=== PATIENT | female | born 1980 | race American Indian/Alaskan Native ===

== ENCOUNTER 2016-05-03 05:42 | Outpatient (CLI) | payer MEDICAID ==
[2016-05-03 06:46] LABS: Bilirubin,Urine NEG (Negative); Blood,Urine NEG (Negative); Ketones,Urine TR mg/dL (Negative); Leukocyte Esterase,Urine NEG (Negative); Mucus,Urine FEW /HPF; Nitrite,Urine NEG (Negative); Protein,Urine <15 mg/dL mg/dL (Negative); Urobilinogen,Urine < 2.0 mg/dL (<2.0)
[2016-05-03] MEDS ORDERED: LACTATED RINGERS 500 ML IV ONE (08:35)
[2016-05-03] MEDS ORDERED: ZOFRAN IV ONE (08:47)
[2016-05-03] MEDS ORDERED: LOMOTIL PO PRN (08:48)
[2016-05-03 11:07] VITALS: BP 127/73
== END 2016-05-03 11:27 | disposition home or self-care (01) ==
LOC: TRG 05:42
PROVIDERS: ATTEND Obstetrics & Gynecology
DX: O26.893 Other specified pregnancy related conditions, third trimester (principal); Z3A.28 28 weeks gestation of pregnancy
CPT/HCPCS: 59025; 81001; 96360; 96374; J2405; J7120

== ENCOUNTER 2016-05-15 12:07 | Outpatient (CLI) | payer MEDICAID ==
[2016-05-15] MEDS ORDERED: LACTATED RINGERS 500 ML IV ONE (13:00)
[2016-05-15 13:20] VITALS: BP 133/79
[2016-05-15 13:35] LABS: Bilirubin,Urine NEG (Negative); Blood,Urine NEG (Negative); Ketones,Urine NEG (Negative); Leukocyte Esterase,Urine NEG (Negative); Mucus,Urine FEW /HPF; Nitrite,Urine NEG (Negative); Protein,Urine <15 mg/dL mg/dL (Negative); Urobilinogen,Urine < 2.0 mg/dL (<2.0)
== END 2016-05-15 16:18 | disposition home or self-care (01) ==
LOC: TRG 12:07
PROVIDERS: ATTEND Obstetrics & Gynecology
DX: O47.03 False labor before 37 completed weeks of gestation, third trimester (principal); Z3A.29 29 weeks gestation of pregnancy
CPT/HCPCS: 59025; 81001; J7120

== ENCOUNTER 2016-06-27 10:07 | Outpatient (CLI) | payer MEDICAID ==
[2016-06-27] MEDS ORDERED: LACTATED RINGERS 500 ML IV ONE (12:00)
[2016-06-27] MEDS ORDERED: ZOFRAN IV ONE (12:00)
[2016-06-27 12:06] LABS: Hematocrit 36.5 % (30.3-42.9); Hemoglobin 12.2 gm/dl (10.1-14.3); Mean Corpuscular HGB Conc 34 % (30-34); Mean Corpuscular Hemoglobin 29 pg (28-32); Mean Corpuscular Volume 85 fl (79-97); Red Blood Count 4.29 M/mm3 (3.65-5.03); Red Cell Distribution Width 12.7 % (13.2-15.2); White Blood Count 6.3 K/mm3 (4.5-11.0)
[2016-06-27 12:10] LABS: Bacteria,Urine 1+ /HPF (Negative); Bilirubin,Urine NEG (Negative); Blood,Urine NEG (Negative); Ketones,Urine TR mg/dL (Negative); Leukocyte Esterase,Urine NEG (Negative); Mucus,Urine FEW /HPF; Nitrite,Urine NEG (Negative); Protein,Urine <15 mg/dL mg/dL (Negative)
[2016-06-27 12:19] LABS: Platelet Count 110 K/mm3 (140-440)
[2016-06-27 12:22] LABS: Alanine Aminotransferase 21 units/L (7-56); Lactate Dehydrogenase 552 units/L (91-180); Uric Acid 5.3 mg/dL (3.5-7.6)
[2016-06-27 14:29] VITALS: BP 129/76
== END 2016-06-27 15:13 | disposition home or self-care (01) ==
LOC: TRG 10:07
PROVIDERS: ATTEND Obstetrics & Gynecology
DX: O47.03 False labor before 37 completed weeks of gestation, third trimester (principal); Z3A.35 35 weeks gestation of pregnancy
CPT/HCPCS: 36415; 59025; 81001; 82565; 83615; 84450; 84460; 84550; 85027; 96360; J2405; J7120

== ENCOUNTER 2016-07-06 11:56 | Outpatient (CLI) | payer MEDICAID ==
[2016-07-06] MEDS ORDERED: ZOFRAN ONE (12:55)
[2016-07-06] MEDS ORDERED: LACTATED RINGERS 1,000 ML ONE (12:55)
[2016-07-06] MEDS ORDERED: LACTATED RINGERS 500 ML IV ONE (12:56)
[2016-07-06] MEDS ORDERED: ZOFRAN IV ONE (12:57)
[2016-07-06 13:44] LABS: Bilirubin,Urine NEG (Negative); Blood,Urine NEG (Negative); Ketones,Urine NEG (Negative); Leukocyte Esterase,Urine NEG (Negative); Mucus,Urine FEW /HPF; Nitrite,Urine NEG (Negative); Protein,Urine <15 mg/dL mg/dL (Negative); RBC,Urine < 1.0 /HPF (0.0-6.0); Urobilinogen,Urine < 2.0 mg/dL (<2.0); WBC,Urine < 1.0 /HPF (0.0-6.0)
[2016-07-06 14:32] VITALS: BP 108/49
== END 2016-07-06 14:40 | disposition home or self-care (01) ==
LOC: TRG 11:56
PROVIDERS: ATTEND Obstetrics & Gynecology
DX: O47.1 False labor at or after 37 completed weeks of gestation (principal); Z3A.37 37 weeks gestation of pregnancy
CPT/HCPCS: 59025; 81001; 96360; 96361; 96372; J2405; J7120

== ENCOUNTER 2017-05-01 11:10 | Emergency (ER) | payer SELFPAY ==
[2017-05-01 11:27] VITALS: BP 155/107
[2017-05-01] MEDS ORDERED: MOTRIN PO ONE (11:54)
[2017-05-01] MEDS ORDERED: NORCO 7.5/325 PO ONE (11:54)
--- NOTE | 2017-05-01 11:58 | Emergency Department Report ---
ED Back Pain/Injury HPI - General Chief Complaint: Back Pain/Injury Stated Complaint: 2 RUPTURE DISC IN BACK Time Seen by Provider: 05/01/17 11:50 Source: patient Limitations: No Limitations - History of Present Illness Initial Comments: Patient is a 37-year-old female presenting with low back pain. Patient states she coughed yesterday and felt a ripping sensation in her lower back. Patient has a history of 2 ruptured disc with a history of needing physical therapy and the several therapies are back. Patient states that the pain is 8 out of 10 and worse with movement. Patient denies any urinary or bowel abnormalities. Patient states there is no radiation of the pain down to the legs. Patient also denies any fever or urinary symptoms such as dysuria nausea vomiting or abdominal pain. MD Complaint: back pain - Related Data Previous Rx's Medication Instructions Recorded Last Taken Type Levofloxacin [levofloxacin OPTH] 1 - 2 drop OP Q2HWA #80 drops 11/21/15 Unknown Rx Acetaminophen [Acetaminophen TAB] 500 mg PO Q6HR #30 tablet 01/09/16 Unknown Rx HYDROcodone/ACETAMINOPHEN [[place] 1 each PO Q6HR PRN #12 tablet 05/01/17 Unknown Rx 5-325 Tablet] Ibuprofen [Motrin] 800 mg PO Q8HR PRN #20 tablet 05/01/17 Unknown Rx methOCARBAMOL [Robaxin TAB] 500 mg PO Q6H PRN #15 tablet 05/01/17 Unknown Rx Allergies Allergy/AdvReac Type Severity Reaction Status Date / Time Penicillins Allergy Swelling Verified 10/29/15 16:43 ED Review of Systems ROS: Stated complaint: 2 RUPTURE DISC IN BACK Other details as noted in HPI Comment: All other systems reviewed and negative ED Past Medical Hx - Past Medical History "cyst on ovary", ruptured disc Family history: no significant family history ED Back Pain Physical Exam - Exam General: Vital signs noted. No distress. Alert and acting appropriately. Heart lung exams are within normal limits. Abdomen is soft nontender. Skin exam is normal no rash present. Back/Abdomen: Yes Perilumbar Tenderness, No Abdominal Tenderness, No Perithoracic Tenderness, No Sacroiliac Tenderness, No Flank Tenderness, No Straight Leg Raise Pain Neuro: Yes Normal Sensation, Yes Normal DTR's, Yes Normal Gait, No Motor Weakness ED Course Vital Signs 05/01/17 11:23 Temperature 98.7 F Pulse Rate 79 Respiratory 18 Rate Blood Pressure 155/107 O2 Sat by Pulse 98 Oximetry Critical care attestation.: If time is entered above; I have spent that time in minutes in the direct care of this critically ill patient, excluding procedure time. ED Disposition Clinical Impression: Lumbar spine strain Qualifiers: Encounter type: initial encounter Qualified Code(s): S39.012A - Strain of muscle, fascia and tendon of lower back, initial encounter Disposition: TO HOME OR SELFCARE Is pt being admited?: No Does the pt Need Aspirin: No Condition: Stable Instructions: Low Back Strain (ED) Prescriptions: HYDROcodone/ACETAMINOPHEN [[place] 5-325 Tablet] 1 each PO Q6HR PRN #12 tablet PRN Reason: Pain Ibuprofen [Motrin] 800 mg PO Q8HR PRN #20 tablet PRN Reason: Pain methOCARBAMOL [Robaxin TAB] 500 mg PO Q6H PRN #15 tablet PRN Reason: Pain Referrals: OSIRIS SON MD [Staff Physician] - 3-5 Days
== END 2017-05-01 12:06 | disposition home or self-care (01) ==
LOC: ED 11:10
DX: S39.012A Strain of muscle, fascia and tendon of lower back, initial encounter (principal); Z88.0 Allergy status to penicillin; X58.XXXA Exposure to other specified factors, initial encounter; Y93.89 Activity, other specified; Y99.8 Other external cause status; Y92.89 Other specified places as the place of occurrence of the external cause
CPT/HCPCS: 99282

== ENCOUNTER 2018-05-22 09:59 | Emergency (ER) | payer MEDICAID, OTHER ==
[2018-05-22] MEDS ORDERED: ASPIRIN PO ONE (10:18)
[2018-05-22 10:33] LABS: Basophils # (Auto) 0.1 K/mm3 (0.0-0.1); Basophils % (Auto) 1.1 % (0.0-1.8); Eosinophils % (Auto) 0.4 % (0.0-4.3); Hematocrit 53.1 % (30.3-42.9); Hemoglobin 17.7 gm/dl (10.1-14.3); Lymphocytes # (Auto) 1.8 K/mm3 (1.2-5.4); Lymphocytes % (Auto) 23.2 % (13.4-35.0); Mean Corpuscular HGB Conc 33 % (30-34); Mean Corpuscular Volume 87 fl (79-97); Monocytes # (Auto) 0.7 K/mm3 (0.0-0.8); Monocytes % (Auto) 9.3 % (0.0-7.3); Platelet Count 135 K/mm3 (140-440); Red Blood Count 6.12 M/mm3 (3.65-5.03); Red Cell Distribution Width 14.6 % (13.2-15.2)
--- NOTE | 2018-05-22 10:55 | XRay Report ---
ROUTINE CHEST, TWO VIEWS: HISTORY: chest pain. The trachea, heart, mediastinal contour, lung bueno and bony thorax are unremarkable. IMPRESSION: Unremarkable chest x-ray.
[2018-05-22 11:05] LABS: BUN/Creatinine Ratio 8; Blood Urea Nitrogen 6 mg/dL (7-17); Calcium 9.1 mg/dL (8.4-10.2); Hemolysis Index 43
--- NOTE | 2018-05-22 12:06 | Emergency Department Report ---
ED Chest Pain HPI - General Chief Complaint: Chest Pain Stated Complaint: CHEST PAIN/LFT ARM PAIN Time Seen by Provider: 05/22/18 11:38 Source: patient Mode of arrival: Ambulatory Limitations: No Limitations - History of Present Illness Initial Comments: Patient is a 38-year-old Female who is presenting with chest discomfort which started this morning. Patient states that she has some tightness in the chest last to 3 hours and also states she has some tingling in her left arm. Patient states that this is not exertional and constant. She had one episode of nausea and vomiting. Patient states that prior to arrival she did have some shortness of breath and a mild cough patient denies any history of chest pain. Patient denies fevers chills sore throat and body aches at this time. Severity scale (0 -10): 7 - Related Data Previous Rx's Medication Instructions Recorded Last Taken Type levoFLOXacin [levofloxacin OPTH] 1 - 2 drop OP Q2HWA #80 drops 11/21/15 Unknown Rx Acetaminophen [Acetaminophen TAB] 500 mg PO Q6HR #30 tablet 01/09/16 Unknown Rx HYDROcodone/ACETAMINOPHEN [[place] 1 each PO Q6HR PRN #12 tablet 05/01/17 Unknown Rx 5-325 Tablet] Ibuprofen [Motrin] 800 mg PO Q8HR PRN #20 tablet 05/01/17 Unknown Rx methOCARBAMOL [Robaxin TAB] 500 mg PO Q6H PRN #15 tablet 05/01/17 Unknown Rx Allergies Allergy/AdvReac Type Severity Reaction Status Date / Time Penicillins Allergy Swelling Verified 10/29/15 16:43 Heart Score - HEART Score History: Moderately suspicious EKG: Normal Age: < 45 Risk factors: No known risk factors Troponin: < normal limit HEART Score: 1 ED Review of Systems ROS: Stated complaint: CHEST PAIN/LFT ARM PAIN Other details as noted in HPI Comment: All other systems reviewed and negative ED Past Medical Hx - Past Medical History Hx Hypertension: Yes (previous ) Hx Congestive Heart Failure: No Hx Diabetes: Yes (gestational in previous preg.) Hx Deep Vein Thrombosis: No Hx Renal Disease: No Hx Sickle Cell Disease: No Hx Seizures: No Hx Asthma: No Hx COPD: No Hx HIV: No Additional medical history: "cyst on ovary", ruptured disc - Surgical History Past Surgical History?: No Additional Surgical History: D & C. C section - Social History Smoking Status: Current Every Day Smoker Substance Use Type: None, Alcohol, Marijuana - Medications Home Medications: Home Medications Medication Instructions Recorded Confirmed Last Taken Type levoFLOXacin [levofloxacin OPTH] 1 - 2 drop OP Q2HWA #80 drops 11/21/15 Unknown Rx Acetaminophen [Acetaminophen TAB] 500 mg PO Q6HR #30 tablet 01/09/16 Unknown Rx HYDROcodone/ACETAMINOPHEN [[place] 1 each PO Q6HR PRN #12 tablet 05/01/17 Unknown Rx 5-325 Tablet] Ibuprofen [Motrin] 800 mg PO Q8HR PRN #20 tablet 05/01/17 Unknown Rx methOCARBAMOL [Robaxin TAB] 500 mg PO Q6H PRN #15 tablet 05/01/17 Unknown Rx ED Physical Exam - General Limitations: No Limitations General appearance: alert, in no apparent distress - Head Head exam: Present: atraumatic, normocephalic - Eye Eye exam: Present: normal appearance - ENT ENT exam: Present: mucous membranes moist - Neck Neck exam: Present: normal inspection - Respiratory Respiratory exam: Present: normal lung sounds bilaterally. Absent: respiratory distress, wheezes, rales, rhonchi - Cardiovascular Cardiovascular Exam: Present: regular rate, normal rhythm. Absent: systolic murmur, diastolic murmur, rubs, gallop - GI/Abdominal GI/Abdominal exam: Present: soft, normal bowel sounds. Absent: distended, tenderness, guarding, rebound - Extremities Exam Extremities exam: Present: normal inspection - Back Exam Back exam: Present: normal inspection - Neurological Exam Neurological exam: Present: alert, oriented X3 - Psychiatric Psychiatric exam: Present: normal affect, normal mood - Skin Skin exam: Present: warm, dry, intact, normal color. Absent: rash ED Course Vital Signs 05/22/18 10:13 Temperature 99.0 F Pulse Rate 88 ED Medical Decision Making - Lab Data Result diagrams: 05/22/18 10:23 05/22/18 10:23 Lab Results 05/22/18 05/22/18 05/22/18 Range/Units 10:23 10:23 12:05 WBC 7.7 (4.5-11.0) K/mm3 RBC 6.12 H (3.65-5.03) M/mm3 Hgb 17.7 H (10.1-14.3) gm/dl Hct 53.1 H (30.3-42.9) % MCV 87 (79-97) fl MCH 29 (28-32) pg MCHC 33 (30-34) % RDW 14.6 (13.2-15.2) % Plt Count 135 L (140-440) K/mm3 Lymph % (Auto) 23.2 (13.4-35.0) % [place] % (Auto) 9.3 H (0.0-7.3) % Eos % (Auto) 0.4 (0.0-4.3) % Baso % (Auto) 1.1 (0.0-1.8) % Lymph # 1.8 (1.2-5.4) K/mm3 [place] # 0.7 (0.0-0.8) K/mm3 Eos # 0.0 (0.0-0.4) K/mm3 Baso # 0.1 (0.0-0.1) K/mm3 Seg Neutrophils % 66.0 (40.0-70.0) % Seg Neutrophils # 5.1 (1.8-7.7) K/mm3 D-Dimer < 135 (0-234) ng/mlDDU Sodium 140 (137-145) mmol/L Potassium 4.1 (3.6-5.0) mmol/L Chloride 105.0 (98-107) mmol/L Carbon Dioxide 24 (22-30) mmol/L Anion Gap 15 mmol/L BUN 6 L (7-17) mg/dL Creatinine 0.8 (0.7-1.2) mg/dL Estimated GFR > 60 ml/min BUN/Creatinine Ratio 8 % Glucose 103 H (65-100) mg/dL Calcium 9.1 (8.4-10.2) mg/dL Troponin T < 0.010 (0.00-0.029) ng/mL - EKG Data -: EKG Interpreted by Pa EKG shows normal: sinus rhythm, axis, intervals, QRS complexes, ST-T waves Rate: normal - EKG Data Interpretation: normal EKG - Radiology Data Radiology results: report reviewed (CXR WNL) - Medical Decision Making Patient's first troponin and d-dimer within normal limits. Chest x-ray was normal. The patient's stated that she could not wait for her second troponin. Patient has family issues and states she will come back if her pain returns. Patient given cardiology for follow-up and patient signed out AGAINST MEDICAL ADVICE. Critical care attestation.: If time is entered above; I have spent that time in minutes in the direct care of this critically ill patient, excluding procedure time. ED Disposition Clinical Impression: Chest pain Disposition: LEFT AGAINST MED ADVICE Is pt being admited?: No Does the pt Need Aspirin: No Condition: Stable Instructions: Chest Pain (ED) Referrals: RICHARD MCCURDY MD [Primary Care Provider] - 3-5 Days JESÚS KAY MD [Staff Physician] - 3-5 Days Time of Disposition: 13:32
[2018-05-22 13:53] VITALS: BP 130/80
== END 2018-05-22 13:47 | disposition left against medical advice (07) ==
LOC: ED 09:59
DX: R07.89 Other chest pain (principal); I10 Essential (primary) hypertension; E11.9 Type 2 diabetes mellitus without complications; F17.200 Nicotine dependence, unspecified, uncomplicated; F12.10 Cannabis abuse, uncomplicated; Z88.0 Allergy status to penicillin
CPT/HCPCS: 36415; 71046; 80048; 84484; 85025; 85379; 93005; 93010

== ENCOUNTER 2019-03-29 14:12 | Emergency (ER) | payer OTHER ==
[2019-03-29] MEDS ORDERED: HYDROmorphone 1 MG/1 ML INJ IV ONE ×2 (14:37→17:10)
--- NOTE | 2019-03-29 14:38 | Emergency Department Report ---
ED Fall HPI - General Stated Complaint: FALL/BACK PAIN Time Seen by Provider: 03/29/19 14:31 Source: patient, EMS Mode of arrival: Stretcher Limitations: Physical Limitation - History of Present Illness Initial Comments: Patient is a 39-year-old female that presents April and with complaints of fall and severe back pain. Patient states that she was getting out of shower she sl ipped and fell. 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 Patient states the pain as a 10 out of 10. Patient states the pain is worse with any type of movement or palpation. Patient states that the pain is better with rest and remaining still. Patient denies numbness and tingling in the legs. Patient denies saddle numbness. Patient denies loss of control of urination or bowel. MD Complaint: fall -: Sudden Fall From: standing When Fall Occurred: 1 hour [employer] Fall Witnessed: yes, by family Place Fall Occurred: home Loss of Consciousness: none Prolonged Down Time?: yes Symptoms Prior to Fall: none Location: back Severity: severe Severity scale (0 -10): 10 Quality: sharp, stabbing Context: tripped/slipped Associated Symptoms: unable to walk. denies: headache, neck pain, numbness, weakness, chest paint, shortness of breath, abdominal pain, hematuria, lightheaded, vertigo, confusion - Related Data Previous Rx's Medication Instructions Recorded Last Taken Type levoFLOXacin [levofloxacin OPTH] 1 - 2 drop OP Q2HWA #80 drops 11/21/15 Unknown Rx Acetaminophen [Acetaminophen TAB] 500 mg PO Q6HR #30 tablet 01/09/16 Unknown Rx HYDROcodone/ACETAMINOPHEN [[place] 1 each PO Q6HR PRN #12 tablet 05/01/17 Unknown Rx 5-325 Tablet] Ibuprofen [Motrin] 800 mg PO Q8HR PRN #20 tablet 05/01/17 Unknown Rx HYDROcodone/APAP 5-325 [[place] 1 each PO Q4HR PRN #12 tablet 03/29/19 Unknown Rx 5/325] methOCARBAMOL [Robaxin TAB] 500 mg PO Q6H PRN #15 tablet 03/29/19 Unknown Rx Allergies Allergy/AdvReac Type Severity Reaction Status Date / Time Penicillins Allergy Swelling Verified 10/29/15 16:43 ED Review of Systems ROS: Stated complaint: FALL/BACK PAIN Other details as noted in HPI Constitutional: denies: chills, fever Eyes: denies: eye pain, eye discharge, vision change ENT: denies: ear pain, throat pain Respiratory: denies: cough, shortness of breath, wheezing Cardiovascular: denies: chest pain, palpitations Endocrine: no symptoms reported Gastrointestinal: denies: abdominal pain, nausea, diarrhea Genitourinary: denies: urgency, dysuria, discharge Musculoskeletal: back pain. denies: joint swelling, arthralgia Skin: denies: rash, lesions Neurological: denies: headache, weakness, paresthesias Psychiatric: denies: anxiety, depression Hematological/Lymphatic: denies: easy bleeding, easy bruising ED Past Medical Hx - Past Medical History Previous Medical History?: Yes Hx Hypertension: Yes (previous ) Hx Congestive Heart Failure: No Hx Diabetes: Yes (gestational in previous preg.) Hx Deep Vein Thrombosis: No Hx Renal Disease: No Hx Sickle Cell Disease: No Hx Seizures: No Hx Asthma: No Hx COPD: No Hx HIV: No Additional medical history: "cyst on ovary", ruptured disc - Surgical History Past Surgical History?: Yes Additional Surgical History: D & C. C section - Family History Family history: no significant - Social History Smoking Status: Current Every Day Smoker Substance Use Type: None, Alcohol, Marijuana - Medications Home Medications: Home Medications Medication Instructions Recorded Confirmed Last Taken Type levoFLOXacin [levofloxacin OPTH] 1 - 2 drop OP Q2HWA #80 drops 11/21/15 Unknown Rx Acetaminophen [Acetaminophen TAB] 500 mg PO Q6HR #30 tablet 01/09/16 Unknown Rx HYDROcodone/ACETAMINOPHEN [[place] 1 each PO Q6HR PRN #12 tablet 05/01/17 Unknown Rx 5-325 Tablet] Ibuprofen [Motrin] 800 mg PO Q8HR PRN #20 tablet 05/01/17 Unknown Rx HYDROcodone/APAP 5-325 [[place] 1 each PO Q4HR PRN #12 tablet 03/29/19 Unknown Rx 5/325] methOCARBAMOL [Robaxin TAB] 500 mg PO Q6H PRN #15 tablet 03/29/19 Unknown Rx ED Physical Exam - General Limitations: Physical Limitation General appearance: alert, in no apparent distress - Head Head exam: Present: atraumatic, normocephalic - Eye Eye exam: Present: normal appearance - ENT ENT exam: Present: mucous membranes moist - Neck Neck exam: Present: normal inspection - Respiratory Respiratory exam: Present: normal lung sounds bilaterally. Absent: respiratory distress, wheezes, rales - Cardiovascular Cardiovascular Exam: Present: regular rate, normal rhythm. Absent: systolic murmur, diastolic murmur, rubs, gallop - GI/Abdominal GI/Abdominal exam: Present: soft, normal bowel sounds. Absent: distended, tenderness, guarding - Rectal Rectal exam: Present: normal inspection, normal rectal tone, heme (-) stool, other (rectal exam done due to the patient's complaints, rectal exam normal. Nurse DIANNE in the room during the entire exam.). Absent: decreased rectal tone, heme (+) stool, black stool, bloody stool, fecal impaction, hemorrhoids, mass - Extremities Exam Extremities exam: Present: normal inspection - Back Exam Back exam: Present: normal inspection, tenderness, CVA tenderness (R), CVA tenderness (L), muscle spasm, paraspinal tenderness, vertebral tenderness - Neurological Exam Neurological exam: Present: alert, oriented X3 - Psychiatric Psychiatric exam: Present: normal affect, normal mood - Skin Skin exam: Present: warm, dry, intact, normal color. Absent: rash ED Course Vital Signs 03/29/19 03/29/19 14:40 17:50 Temperature 98.7 F Pulse Rate 79 74 Respiratory 16 17 Rate Blood Pressure 126/74 Blood Pressure 123/81 [Right] O2 Sat by Pulse 100 99 Oximetry - Reevaluation(s) Reevaluation #1: I discussed all results with patient. I discussed plan of care with patient. Patient agrees with plan of care and discharge. Patient will be discharged home. Patient stable for discharge. Patient given discharge instructions. Patient voiced understanding of discharge instructions. 03/29/19 17:47 ED Medical Decision Making - Lab Data Result diagrams: 03/29/19 15:07 03/29/19 15:07 Sodium 141, potassium 4.1, chloride 105.4, gap 17 - Radiology Data Radiology results: report reviewed CT lumbar spine without contrast CLINICAL HISTORY: Back pain, fall. FINDINGS: No previous CT exams available for comparison. There is mild curvature of the lumbar spine, convex toward the left at. However, there is no significant spondylolisthesis. There is beam hardening from the patient's body habitus with suboptimal reconstructed images. However, there is no clear CT evidence of acute compression fracture. There is a broad-based disc bulge at L5-S1 which appears to mildly flatten the ventral thecal sac and encroaches on the left lateral recess. Additionally, there is mild left neural foraminal narrowing at.. The disc bulge at L4-5 mildly flattens the ventral thecal sac at. The neural foramen appear patent at. There is no clear CT evidence of significant bony of spinal stenosis involving upper lumbar segments. All CT scans at this location are performed using the CT dose reduction for ALARA by means of automated exposure control. IMPRESSION: There is no CT evidence of acute compression fracture - Medical Decision Making Condition is a 39-year-old female that presents emergency complaints of severe lower back pain after a fall. Patient states she has a chronic degenerative disc disease of her back prior to fall. Patient unable to walk due to pain. Patient given pain medication ER and her symptoms improved. Due to the amount o f pain and the patient's difficulty with ambulation a CT scan of the lower back was done and was negative for acute findings. Patient responded well to therapy. Patient discharged home with muscle relaxers and pain medications. Patient's labs are unremarkable. - Differential Diagnosis back pain, strain, fracture, sprain, contusion Critical care attestation.: If time is entered above; I have spent that time in minutes in the direct care of this critically ill patient, excluding procedure time. ED Disposition Clinical Impression: Low back sprain Qualifiers: Encounter type: initial encounter Qualified Code(s): S33.5XXA - Sprain of ligaments of lumbar spine, initial encounter Fall Qualifiers: Encounter type: initial encounter Qualified Code(s): W19.XXXA - Unspecified f all, initial encounter Back pain Qualifiers: Back pain location: low back pain Chronicity: acute Back pain laterality: midline Sciatica presence: without sciatica Qualified Code(s): M54.5 - Low back pain Disposition: DC-01 TO HOME OR SELFCARE Is pt being admited?: No Does the pt Need Aspirin: No Condition: Stable Instructions: Low Back Strain (ED), Acute Low Back Pain (ED), Back Pain (ED) Additional Instructions: Patient to follow up with primary care in 2-3 days. Patient to follow with or thopedist in 2-3 days. Patient to avoid strenuous exercise, lifting and work until cleared by orthopedist. Patient to return to ER if condition worsens or symptoms change or new symptoms arise. Patient to take Tylenol or ibuprofen when necessary for pain. Patient take meds as directed. Patient to rest. Prescriptions: HYDROcodone/APAP 5-325 [[place] 5/325] 1 each PO Q4HR PRN #12 tablet PRN Reason: Pain methOCARBAMOL [Robaxin TAB] 500 mg PO Q6H PRN #15 tablet PRN Reason: Pain Referrals: OSIRIS SON MD [Staff Physician] - 2-3 Days Forms: Work/School Release Form Time of Disposition: 17:48
[2019-03-29 15:33] LABS: Hematocrit 39.9 % (30.3-42.9); Hemoglobin 13.4 gm/dl (10.1-14.3); Mean Corpuscular HGB Conc 34 % (30-34); Mean Corpuscular Volume 86 fl (79-97); Red Blood Count 4.64 M/mm3 (3.65-5.03); Red Cell Distribution Width 16.2 % (13.2-15.2)
[2019-03-29 16:09] LABS: Platelet Count 113 K/mm3 (140-440)
[2019-03-29 16:20] LABS: Alanine Aminotransferase 11 units/L (7-56); Albumin 3.9 g/dL (3.9-5); BUN/Creatinine Ratio 12; Blood Urea Nitrogen 7 mg/dL (7-17); Calcium 9.8 mg/dL (8.4-10.2); Hemolysis Index 0
--- NOTE | 2019-03-29 17:20 | Cat Scan Report ---
CT lumbar spine without contrast CLINICAL HISTORY: Back pain, fall. FINDINGS: No previous CT exams available for comparison. There is mild curvature of the lumbar spine, convex toward the left at. However, there is no significant spondylolisthesis. There is beam hardeni ng from the patient's body habitus with suboptimal reconstructed images. However, there is no clear C T evidence of acute compression fracture. There is a broad-based disc bulge at L5-S1 which appears to mildly flatten the ventral thecal sac and encroaches on the left lateral recess. Additionally, there is mild left neural foraminal narrowing a t.. The disc bulge at L4-5 mildly flattens the ventral thecal sac at. The neural foramen appear paten t at. There is no clear CT evidence of significant bony of spinal stenosis involving upper lumbar seg ments. All CT scans at this location are performed using the CT dose reduction for ALARA by means of automated exposure control. IMPRESSION: There is no CT evidence of acute compression fracture involving the cervical spine. Signer Name: Jimmy Abreu MD Signed: 03/29/2019 5:16 PM Workstation Name: [id number]
[2019-03-29 17:51] VITALS: BP 123/81
== END 2019-03-29 18:30 | disposition home or self-care (01) ==
LOC: ED 14:12
DX: S33.5XXA Sprain of ligaments of lumbar spine, initial encounter (principal); I10 Essential (primary) hypertension; E11.9 Type 2 diabetes mellitus without complications; F17.200 Nicotine dependence, unspecified, uncomplicated; F12.10 Cannabis abuse, uncomplicated; Z98.890 Other specified postprocedural states; Z79.899 Other long term (current) drug therapy; Z79.1 Long term (current) use of non-steroidal anti-inflammatories (NSAID); Z88.0 Allergy status to penicillin; W19.XXXA Unspecified fall, initial encounter; Y93.89 Activity, other specified; Y92.89 Other specified places as the place of occurrence of the external cause; Y99.8 Other external cause status
CPT/HCPCS: 36415; 72131; 80053; 84703; 85027; 96374; 96376; 99284; J1170

== ENCOUNTER 2019-08-12 14:58 | Emergency (ER) | payer OTHER ==
--- NOTE | 2019-08-12 15:42 | Emergency Department Report ---
Blank Doc - Documentation Documentation: 39-year-old female that presents with left sided pain and left flank pain. This initial assessment/diagnostic orders/clinical plan/treatment(s) is/are subject to change based on patient's health status, clinical progression and re- assessment by fellow clinical providers in the ED. Further treatment and workup at subsequent clinical providers discretion. Patient/guardians urged not to elope from the ED as their condition may be serious if not clinically assessed and managed. Initial orders include: 1- Patient sent to [facility] for further evaluation and treatment 2- labs 3- UA
[2019-08-12 15:44] VITALS: BP 152/89
[2019-08-12 16:08] LABS: Basophils # (Auto) 0.1 K/mm3 (0.0-0.1); Basophils % (Auto) 1.1 % (0.0-1.8); Eosinophils % (Auto) 0.7 % (0.0-4.3); Hematocrit 47.8 % (30.3-42.9); Hemoglobin 15.9 gm/dl (10.1-14.3); Lymphocytes % (Auto) 34.3 % (13.4-35.0); Mean Corpuscular HGB Conc 33 % (30-34); Mean Corpuscular Volume 89 fl (79-97); Monocytes # (Auto) 0.6 K/mm3 (0.0-0.8); Monocytes % (Auto) 10.8 % (0.0-7.3); Red Blood Count 5.37 M/mm3 (3.65-5.03); Red Cell Distribution Width 13.8 % (13.2-15.2)
[2019-08-12 16:12] LABS: Bilirubin,Urine NEG (Negative); Blood,Urine NEG (Negative); Color,Urine Straw (Yellow); Protein,Urine <15 mg/dL mg/dL (Negative); Urobilinogen,Urine < 2.0 mg/dL (<2.0)
[2019-08-12 16:13] LABS: HCG Qualitative,Urine Negative (Negative)
[2019-08-12 16:21] LABS: Alanine Aminotransferase 20 units/L (7-56); Albumin 4.3 g/dL (3.9-5); BUN/Creatinine Ratio 8; Blood Urea Nitrogen 7 mg/dL (7-17); Calcium 9.8 mg/dL (8.4-10.2); Hemolysis Index 11
[2019-08-12 17:18] LABS: Platelet Count 135 K/mm3 (140-440)
[2019-08-12] MEDS ORDERED: CYCLOBENZAPRINE 10 MG TAB PO ONE (20:23)
[2019-08-12] MEDS ORDERED: traMADol 50 MG TAB PO ONE (20:23)
[2019-08-12] MEDS ORDERED: dexAMETHasone 20 MG/5 ML VIAL IM ONE (20:23)
--- NOTE | 2019-08-12 21:31 | Emergency Department Report ---
ED Back Pain/Injury HPI - General Chief Complaint: Back Pain/Injury Stated Complaint: LEFT SIDE BACK PAIN Time Seen by Provider: 08/12/19 15:41 Source: patient Limitations: No Limitations - History of Present Illness Initial Comments: Patient is a 39-year-old female presents emergency room with complaints of left lower back pain that began today. She states that today she was doing sweeping and picking up her children. She denies any nausea, vomiting, diarrhea, fever, urinary symptoms. Patient states that she has a history of chronic back pain due to disc issues but is not currently seeing an orthopedic doctor. She denies any numbness, weakness, bowel or bladder incontinence, saddle numbness. She states her last menstrual cycle was July 22. She has an allergy to penicillin. She states she did not drive to the emergency department today - Related Data Previous Rx's Medication Instructions Recorded Last Taken Type levoFLOXacin [levofloxacin OPTH] 1 - 2 drop OP Q2HWA #80 drops 11/21/15 Unknown Rx Acetaminophen [Acetaminophen TAB] 500 mg PO Q6HR #30 tablet 01/09/16 Unknown Rx HYDROcodone/ACETAMINOPHEN [[place] 1 each PO Q6HR PRN #12 tablet 05/01/17 Unknown Rx 5-325 Tablet] Ibuprofen [Motrin] 800 mg PO Q8HR PRN #20 tablet 05/01/17 Unknown Rx HYDROcodone/APAP 5-325 [[place] 1 each PO Q4HR PRN #12 tablet 03/29/19 Unknown Rx 5/325] methOCARBAMOL [Robaxin TAB] 500 mg PO Q6H PRN #15 tablet 03/29/19 Unknown Rx Menthol/Camphor [[place] 1 applicatio TP BID #24 oint...g. 08/12/19 Unknown Rx Ointment] Naproxen [EC-Naproxen] 500 mg PO BID PRN #14 tablet.dr 08/12/19 Unknown Rx methOCARBAMOL [Robaxin TAB] 500 mg PO BID PRN #14 tab 08/12/19 Unknown Rx Allergies Allergy/AdvReac Type Severity Reaction Status Date / Time Penicillins Allergy Swelling Verified 10/29/15 16:43 ED Review of Systems ROS: Stated complaint: LEFT SIDE BACK PAIN Other details as noted in HPI Comment: All other systems reviewed and negative ED Past Medical Hx - Past Medical History Previous Medical History?: Yes Hx Hypertension: Yes (previous ) Hx Congestive Heart Failure: No Hx Diabetes: Yes (gestational in previous preg.) Hx Deep Vein Thrombosis: No Hx Renal Disease: No Hx Sickle Cell Disease: No Hx Seizures: No Hx Asthma: No Hx COPD: No Hx HIV: No Additional medical history: "cyst on ovary", ruptured disc - Surgical History Past Surgical History?: Yes Additional Surgical History: D & C. C section - Social History Smoking Status: Current Every Day Smoker Substance Use Type: Marijuana - Medications Home Medications: Home Medications Medication Instructions Recorded Confirmed Last Taken Type levoFLOXacin [levofloxacin OPTH] 1 - 2 drop OP Q2HWA #80 drops 11/21/15 Unknown Rx Acetaminophen [Acetaminophen TAB] 500 mg PO Q6HR #30 tablet 01/09/16 Unknown Rx HYDROcodone/ACETAMINOPHEN [[place] 1 each PO Q6HR PRN #12 tablet 05/01/17 Unknown Rx 5-325 Tablet] Ibuprofen [Motrin] 800 mg PO Q8HR PRN #20 tablet 05/01/17 Unknown Rx HYDROcodone/APAP 5-325 [[place] 1 each PO Q4HR PRN #12 tablet 03/29/19 Unknown Rx 5/325] methOCARBAMOL [Robaxin TAB] 500 mg PO Q6H PRN #15 tablet 03/29/19 Unknown Rx Menthol/Camphor [[place] 1 applicatio TP BID #24 oint...g. 08/12/19 Unknown Rx Ointment] Naproxen [EC-Naproxen] 500 mg PO BID PRN #14 tablet.dr 08/12/19 Unknown Rx methOCARBAMOL [Robaxin TAB] 500 mg PO BID PRN #14 tab 08/12/19 Unknown Rx ED Physical Exam - General Limitations: No Limitations General appearance: alert, other (in mild distress secondary to pain and tearful) - Head Head exam: Present: atraumatic, normocephalic - Eye Eye exam: Present: normal appearance - ENT ENT exam: Present: mucous membranes moist - Neck Neck exam: Present: normal inspection, full ROM. Absent: tenderness - Respiratory Respiratory exam: Present: normal lung sounds bilaterally. Absent: respiratory distress, wheezes, rales, rhonchi, stridor, chest wall tenderness, accessory muscle use, decreased breath sounds, prolonged expiratory - Cardiovascular Cardiovascular Exam: Present: regular rate, normal rhythm, normal heart sounds. Absent: systolic murmur, diastolic murmur, rubs, gallop - GI/Abdominal GI/Abdominal exam: Present: soft, normal bowel sounds. Absent: distended, tenderness, guarding, rebound, rigid - Back Exam Back exam: Present: normal inspection, full ROM, CVA tenderness (L), paraspinal tenderness (left sided lumbar paraspinal muscular ttp, no midline C-spine, T- spine or L-spine ttp, no step offs, no deformities). Absent: CVA tenderness (R), vertebral tenderness - Neurological Exam Neurological exam: Present: alert, oriented X3, CN II-XII intact, normal gait. Absent: motor sensory deficit - Psychiatric Psychiatric exam: Present: normal affect, normal mood - Skin Skin exam: Present: warm, dry, intact ED Course Vital Signs 08/12/19 15:41 Temperature 98 F Pulse Rate 96 H Respiratory 18 Rate Blood Pressure 152/89 O2 Sat by Pulse 97 Oximetry ED Medical Decision Making - Lab Data Result diagrams: 08/12/19 15:46 08/12/19 15:46 Lab Results 08/12/19 08/12/19 08/12/19 Range/Units 15:46 15:46 15:58 WBC 5.7 (4.5-11.0) K/mm3 RBC 5.37 H (3.65-5.03) M/mm3 Hgb 15.9 H (10.1-14.3) gm/dl Hct 47.8 H (30.3-42.9) % MCV 89 (79-97) fl MCH 30 (28-32) pg MCHC 33 (30-34) % RDW 13.8 (13.2-15.2) % Plt Count 135 L (140-440) K/mm3 Lymph % (Auto) 34.3 (13.4-35.0) % [place] % (Auto) 10.8 H (0.0-7.3) % Eos % (Auto) 0.7 (0.0-4.3) % Baso % (Auto) 1.1 (0.0-1.8) % Lymph # 2.0 (1.2-5.4) K/mm3 [place] # 0.6 (0.0-0.8) K/mm3 Eos # 0.0 (0.0-0.4) K/mm3 Baso # 0.1 (0.0-0.1) K/mm3 Seg Neutrophils % 53.1 (40.0-70.0) % Seg Neutrophils # 3.0 (1.8-7.7) K/mm3 Sodium 136 L (137-145) mmol/L Potassium 3.8 (3.6-5.0) mmol/L Chloride 100.6 (98-107) mmol/L Carbon Dioxide 28 (22-30) mmol/L Anion Gap 11 mmol/L BUN 7 (7-17) mg/dL Creatinine 0.9 (0.7-1.2) mg/dL Estimated GFR > 60 ml/min BUN/Creatinine Ratio 8 % Glucose 91 (65-100) mg/dL Calcium 9.8 (8.4-10.2) mg/dL Total Bilirubin 0.70 (0.1-1.2) mg/dL AST 25 (5-40) units/L ALT 20 (7-56) units/L Alkaline Phosphatase 53 (35-129) units/L Total Protein 6.5 (6.3-8.2) g/dL Albumin 4.3 (3.9-5) g/dL Albumin/Globulin Ratio 2.0 % Urine Color Straw (Yellow) Urine Turbidity Clear (Clear) Urine pH 7.0 (5.0-7.0) Ur Specific [place] 1.002 L (1.003-1.030) Urine Protein <15 mg/dl (Negative) mg/dL Urine Glucose (UA) Neg (Negative) mg/dL Urine Ketones Neg (Negative) mg/dL Urine Blood Neg (Negative) Urine Nitrite Neg (Negative) Urine Bilirubin Neg (Negative) Urine Urobilinogen < 2.0 (<2.0) mg/dL Ur Leukocyte Esterase Neg (Negative) Urine WBC (Auto) 1.0 (0.0-6.0) /HPF Urine RBC (Auto) 1.0 (0.0-6.0) /HPF Urine HCG, Qual Negative (Negative) - Medical Decision Making Patient is a 39-year-old female presents emergency room with complaints of left lower back pain that began today. She states that today she was doing sweeping and picking up her children. She denies any nausea, vomiting, diarrhea, fever, urinary symptoms. Patient states that she has a history of chronic back pain due to disc issues but is not currently seeing an orthopedic doctor. She denies any numbness, weakness, bowel or bladder incontinence, saddle numbness. She states her last menstrual cycle was July 22. She has an allergy to penicillin. She states she did not drive to the emergency department today. VSS. on exam: in mild distress secondary to pain and tearful, left sided lumbar paraspinal muscular ttp, no midline C-spine, T-spine or L-spine ttp, no step offs, no deformities, no focal neuro deficit, no CVA tenderness, no abdominal tenderness. Examination most likely consistent with muscle strain. Patient does not have any red flag warning signs of back pain, no trauma, no unexplained weight loss, no neuro deficits, age is not greater than 50, no fever, no IV drug use, no steroid use, no history of cancer. She has had no acute traumatic injury, no midline tenderness, no step-offs, no deformities, no neuro deficits, does not need emergent imaging at this time. Patient given medications while in the ED which improved and patient was ready to go home and was ambulatory in the emergency department. labs are normal. UA WNL. urine preg negative. Patient given prescription for naproxen, Robaxin, [place] balm ointment. Advised patient Please take medication as prescribed as needed. Do not drive or operate heavy machinery while taking muscle relaxer due to potential for drowsiness. May use ice pack for 15 minutes, heating pad for 15 minutes, rest, Epson salt bath. Follow-up with orthopedic doctor. Follow-up with a primary care doctor. If you do not have one several have been listed below. Return to emergency room for any new or worsening symptoms as discussed. - Differential Diagnosis muscle strain, DDD, bulging disc, herniated disc, spondylosis, spondylolist Critical care attestation.: If time is entered above; I have spent that time in minutes in the direct care of this critically ill patient, excluding procedure time. ED Disposition Clinical Impression: Low back pain Qualifiers: Chronicity: acute Back pain laterality: left Sciatica presence: without sciatica Qualified Code(s): M54.5 - Low back pain Disposition: DC-01 TO HOME OR SELFCARE Is pt being admited?: No Does the pt Need Aspirin: No Condition: Stable Instructions: Muscle Strain (ED) Additional Instructions: Please take medication as prescribed as needed. Do not drive or operate heavy machinery while taking muscle relaxer due to potential for drowsiness. May use ice pack for 15 minutes, heating pad for 15 minutes, rest, Epson salt bath. Follow-up with orthopedic doctor. Follow-up with a primary care doctor. If you do not have one several have been listed below. Return to emergency room for any new or worsening symptoms as discussed. Prescriptions: Naproxen [EC-Naproxen] 500 mg PO BID PRN #14 tablet.dr PRN Reason: pain methOCARBAMOL [Robaxin TAB] 500 mg PO BID PRN #14 tab PRN Reason: pain Menthol/Camphor [[place] Ointment] 1 applicatio TP BID #24 oint...g. Referrals: OSIRIS SON MD [Staff Physician] - 3-5 Days [facility] [Provider Group] - 3-5 Days NOEMY CONWAY MD [Staff Physician] - 3-5 Days [facility] [Provider Group] - 3-5 Days Forms: Work/School Release Form(ED) Time of Disposition: 21:31 Print Language: GREENLANDIC
== END 2019-08-12 21:45 | disposition home or self-care (01) ==
LOC: ED 14:58
DX: M54.5 Low back pain (principal); I10 Essential (primary) hypertension; E11.9 Type 2 diabetes mellitus without complications; F17.200 Nicotine dependence, unspecified, uncomplicated; F12.10 Cannabis abuse, uncomplicated; Z79.1 Long term (current) use of non-steroidal anti-inflammatories (NSAID); Z79.899 Other long term (current) drug therapy; Z88.0 Allergy status to penicillin
CPT/HCPCS: 36415; 80053; 81001; 81025; 85025; 96372; 99283; J1100

== ENCOUNTER 2019-08-29 17:58 | Emergency (ER) | payer OTHER ==
[2019-08-29 18:14] VITALS: BP 169/92
[2019-08-29 18:29] LABS: Basophils % (Auto) 0.5 % (0.0-1.8); Eosinophils # (Auto) 0.1 K/mm3 (0.0-0.4); Eosinophils % (Auto) 0.7 % (0.0-4.3); Hematocrit 46.9 % (30.3-42.9); Hemoglobin 15.4 gm/dl (10.1-14.3); Lymphocytes # (Auto) 1.5 K/mm3 (1.2-5.4); Lymphocytes % (Auto) 19.4 % (13.4-35.0); Mean Corpuscular HGB Conc 33 % (30-34); Mean Corpuscular Volume 90 fl (79-97); Monocytes # (Auto) 0.8 K/mm3 (0.0-0.8); Monocytes % (Auto) 10.1 % (0.0-7.3); Platelet Count 141 K/mm3 (140-440); Red Blood Count 5.22 M/mm3 (3.65-5.03); Red Cell Distribution Width 13.5 % (13.2-15.2)
[2019-08-29 18:38] LABS: Bilirubin,Urine NEG (Negative); Blood,Urine MOD (Negative); Color,Urine Yellow (Yellow); Mucus,Urine FEW /HPF; Urobilinogen,Urine < 2.0 mg/dL (<2.0)
[2019-08-29 18:43] LABS: WBC,Urine > 182.0 /HPF (0.0-6.0)
[2019-08-29 18:52] LABS: Alanine Aminotransferase 18 units/L (7-56); Albumin 3.9 g/dL (3.9-5); BUN/Creatinine Ratio 9; Blood Urea Nitrogen 7 mg/dL (7-17); Calcium 9.6 mg/dL (8.4-10.2); Hemolysis Index 8
== END 2019-08-29 19:38 | disposition left against medical advice (07) ==
LOC: ED 17:58
DX: M54.9 Dorsalgia, unspecified (principal); R10.9 Unspecified abdominal pain; Z53.21 Procedure and treatment not carried out due to patient leaving prior to being seen by health care provider
CPT/HCPCS: 36415; 80053; 81001; 85025